=== PATIENT | male | born 1940 | race Caucasian/White ===

== ENCOUNTER 2020-03-25 12:11 | Inpatient (IN) | payer OTHER, BC ==
[2020-03-25] MEDS ORDERED: ONDANSETRON 4 MG/2 ML VIAL ONE (13:24)
[2020-03-25] MEDS ORDERED: MORPHINE 4 MG/ML SYR ONE ×2 (13:24→14:52)
[2020-03-25] MEDS ORDERED: PIPER/TAZO/NS 3.375gm 3.375 GM/100 ML BAG ONE (13:25)
[2020-03-25] MEDS ORDERED: VANCOMYCIN/NS 1 gm 1 GM/250 ML BAG IV ONE (13:30)
--- NOTE | 2020-03-25 13:35 | RAD REPORT ---
EXAM DESCRIPTION: RAD - Foot Right 3 View - 03/25/2020 1:29 pm CLINICAL HISTORY: cellulitis, eval for osteo COMPARISON: No comparisons FINDINGS: No fracture, dislocation or periosteal reaction. No acute or destructive bone process iden tifiable. Mild IP joint space narrowing seen with no spurring or erosive component. Mild to moderate for age first MTP joint degenerative change. Patient has spurring at the Achilles attachment and a ve ry minimal plantar spur. Prominent soft tissue swelling over the dorsum of the mid and distal foot. No air or foreign body see n. IMPRESSION: Prominent dorsal foot soft tissue swelling. No air or foreign body. No acute or destructive bone process.
[2020-03-25 13:52] LABS: Absolute Lymphocytes (CBC) 3.4 K/uL (0.7-4.9); Basophils % 0.7 % (0-1.3); Hematocrit 37.7 % (39.6-49.0); Lymphocytes % 19.1 % (15.3-44.8); MPV 7.2 fL (7.6-11.3); RBC Red Blood Cell Count 4.31 M/uL (4.33-5.43)
[2020-03-25 13:59] LABS: Potassium 3.3 mmol/L (3.5-5.1)
--- NOTE | 2020-03-25 14:21 | ER ---
Nurse's Notes [facility] Name: Zen Carrera Age: 79 yrs Sex: Male : 1940 Arrival Date: 03/25/2020 Time: 12:14 Bed 2 Private MD: Diagnosis: Cellulitis of right lower limb;Hyperglycemia, unspecified Presentation: 03/25 12:44 Chief complaint: Patient states: wound to right foot/ankle X 3-4 weeks, was originally iw being treated by Dr. Horvath but has not seen him since July. 12:44 Method Of Arrival: Wheelchair iw 12:48 Coronavirus screen: At this time, the client does not indicate any symptoms associated iw with coronavirus-19. Ebola Screen: Patient negative for fever greater than or equal to 101.5 degrees Fahrenheit, and additional compatible Ebola Virus Disease symptoms Patient denies exposure to infectious person. Patient denies travel to an Ebola-affected area in the 21 days before illness onset. No symptoms or risks identified at this time. 12:49 Initial Sepsis Screen: Does the patient meet any 2 criteria? HR > 90 bpm. Does the iw patient have a suspected source of infection? Yes: Skin breakdown/wound. Risk Assessment: Do you want to hurt yourself or someone else? Patient reports no desire to harm self or others. Onset of symptoms was February 27, 2020. 12:49 Acuity: NIA 2 iw Triage Assessment: 12:45 General: Appears distressed, uncomfortable, obese, Behavior is cooperative, appropriate bp for age, anxious, fussy. Pain: Complains of pain in right leg. EENT: No deficits noted. Neuro: No deficits noted. Cardiovascular: Rhythm is sinus tachycardia. Respiratory: No deficits noted. GI: No signs and/or symptoms were reported involving the gastrointestinal system. : No signs and/or symptoms were reported regarding the genitourinary system. Derm: Wound noted right leg. Musculoskeletal: No deficits noted. Historical: - Allergies: 12:53 No Known Allergies; iw - Home Meds: :53 levothyroxine 25 mcg tab 1 tab once daily [Active]; metformin 500 mg Oral tab 1 tab 2 iw times per day [Active]; tamsulosin 0.4 mg oral cp24 1 cap once daily [Active]; glipizide 10 mg Oral tab 1 tab 2 times per day [Active]; lisinopril-hydrochlorothiazide 10-12.5 mg oral tab 1 tab once daily [Active]; - PMHx: 12:53 Diabetes - NIDDM; Hypertension; iw - PSHx: 12:53 Cholecystectomy; iw - Family history:: not pertinent. - Hospitalizations: : No recent hospitalization is reported. Screenin:00 Abuse screen: Denies threats or abuse. Denies injuries from another. Nutritional bp screening: No deficits noted. Tuberculosis screening: No symptoms or risk factors identified. Fall Risk None identified. Assessment: 12:45 General: SEE TRIAGE NOTE. bp 14:20 Reassessment: Patient is alert, oriented x 3, equal unlabored respirations, skin aa5 warm/dry/pink. Right leg elevated using pillow and towels for comfort. Pt's family at bedside . 14:52 Reassessment: No changes from previously documented assessment. Patient and/or family bp updated on plan of care and expected duration. Pain level reassessed. ADMIT MD AT B/S. Vital Signs: 12:48 BP 118 / 42; Pulse 119; Resp 18 S; Temp 98.8; Pulse Ox 96% on R/A; iw 13:30 BP 109 / 94; Pulse 101; Resp 14; Pulse Ox 95% ; bp 14:30 BP 116 / 66; Pulse 89; Resp 13; Pulse Ox 98% ; bp 15:48 Temp 98.2(O); bp ED Course: 12:14 Patient arrived in ED. ag5 12:18 Hollis Null MD is Attending Physician. rn 12:49 Triage completed. iw 12:50 Luis Angel Bonilla, RN is Primary Nurse. bp 12:53 Arm band placed on. iw 13:00 Patient has correct armband on for positive identification. Bed in low position. Call bp light in reach. Side rails up X2. Adult w/ patient. 13:05 Inserted saline lock: 18 gauge in left forearm, using aseptic technique. Blood bp collected. 13:14 Radiology exam delayed due to pain meds. sg3 13:29 XRAY Foot RIGHT 3 View In Process Unspecified. EDMS 14:12 Ultrasound completed. Patient tolerated well. Notified ED Physician wiliam. sg3 14:13 Lower Extremity Artery Uni Ltd US In Process Unspecified. EDMS 14:20 Young Null MD is Hospitalizing Provider. rn 16:02 No provider procedures requiring assistance completed. Patient admitted, IV remains in aa5 place. Administered Medications: 13:10 Drug: Zosyn 3.375 grams Route: IVPB; Infused Over: 60 mins; Site: left forearm; bp 14:10 Follow up: Response: No adverse reaction; IV Status: Completed infusion aa5 13:14 Drug: morphine 3 mg Route: IVP; Site: left forearm; bp 13:27 Follow up: Response: No adverse reaction; Pain is decreased bp 13:14 Drug: Zofran (Ondansetron) 4 mg Route: IVP; Site: left forearm; bp 13:28 Follow up: Response: No adverse reaction bp 14:20 Drug: vancoMYCIN 1 grams Route: IVPB; Infused Over: 2 hrs; Site: left forearm; aa5 16:02 Follow up: IV Status: Infusion continued upon admission; Infusion continued upon aa5 admission, ZHANNA Love notiifed. 14:41 Drug: morphine 4 mg Route: IVP; Site: left forearm; bp Outcome: 14:20 Decision to Hospitalize by Provider. rn 16:01 Admitted to Med/surg accompanied by tech, family with patient, via stretcher, with aa5 chart, Report called to ZHANNA Love 16:01 Condition: stable 16:01 Discharge instructions given to patient, family, Instructed on the need for admit. 16:03 Patient left the ED. aa5 Signatures: Dispatcher [employer] EDMS Karlie Arguello RN RN Hollis Null MD MD rn Calderon, Audri, RN RN aa5 Luis Angel Bonilla RN RN bp Godinez, Sarah 3 Robert Ferreira ag5 Corrections: (The following items were deleted from the chart) 14:53 14:52 Reassessment: ADMIT MD AT B/S bp bp
--- NOTE | 2020-03-25 14:22 | EDPHYS ---
Physician Documentation [facility] Name: Zen Carrera Age: 79 yrs Sex: Male : 1940 Arrival Date: 03/25/2020 Time: 12:14 Bed 2 Private MD: ED Physician Hollis Null HPI: 03/25 13:24 This 79 yrs old Male presents to ER via Wheelchair with complaints of foot rn infection. 13:25 The patient presents with cellulitis of the right leg, the patient presents with a rn swollen area of the right foot and right leg. Onset: The symptoms/episode began/occurred at an unknown time. Possible cause(s): unknown. Modifying factors: the symptoms are alleviated by nothing, the symptoms are aggravated by touching. Severity of symptoms: At their worst the symptoms were moderate, in the emergency department the symptoms are unchanged. The patient has experienced a previous episode. Reports seen by podiatry in past, Dr. Horvath, for similar infection, got better, now reports unknown duration with right foot swelling/redness/green discoloration. No fever. Reports generalized weakness and fatigue. . Historical: - Allergies: 12:53 No Known Allergies; iw - Home Meds: 12:53 levothyroxine 25 mcg tab 1 tab once daily [Active]; metformin 500 mg Oral tab 1 tab 2 iw times per day [Active]; tamsulosin 0.4 mg oral cp24 1 cap once daily [Active]; glipizide 10 mg Oral tab 1 tab 2 times per day [Active]; lisinopril-hydrochlorothiazide 10-12.5 mg oral tab 1 tab once daily [Active]; - PMHx: 12:53 Diabetes - NIDDM; Hypertension; iw - PSHx: 12:53 Cholecystectomy; iw - Family history:: not pertinent. - Hospitalizations: : No recent hospitalization is reported. ROS: 13:25 Constitutional: Negative for fever, chills, and weight loss, Eyes: Negative for injury, rn pain, redness, and discharge, Cardiovascular: Negative for chest pain, and edema, Respiratory: Negative for shortness of breath, cough, wheezing, and pleuritic chest pain, Abdomen/GI: Negative for abdominal pain, vomiting, diarrhea, and constipation, MS/Extremity: + RLE swelling and pain Skin: + green discoloration of skin of RLE Neuro: Negative for headache, weakness, and seizure. Exam: 13:25 Constitutional: Overweight male, no acute distress. Head/Face: Normocephalic, rn atraumatic. Eyes: Periorbital areas with no swelling, redness, or edema. Cardiovascular: Tachycardic, regular Respiratory: Speaking full sentences. No increased work of breathing, no retractions or nasal flaring. Skin: Warm, moist, greenish hue overlying erythematous base of skin involving right foot and ankle/pre-tibial region. No streaking. No fluctuance. MS/ Extremity: Pulses diminished but equal bilaterally, no cyanosis. Neurovascular intact. Neuro: Awake and alert, GCS 15 Vital Signs: 12:48 BP 118 / 42; Pulse 119; Resp 18 S; Temp 98.8; Pulse Ox 96% on R/A; iw 13:30 BP 109 / 94; Pulse 101; Resp 14; Pulse Ox 95% ; bp 14:30 BP 116 / 66; Pulse 89; Resp 13; Pulse Ox 98% ; bp 15:48 Temp 98.2(O); bp MDM: 12:18 Patient medically screened. rn 14:18 Differential diagnosis: cellulitis. Data reviewed: vital signs, nurses notes, rn radiologic studies, plain films, and as a result, I will admit patient. Counseling: I had a detailed discussion with the patient and/or guardian regarding: the historical points, exam findings, and any diagnostic results supporting the discharge/admit diagnosis, radiology results, the need for further work-up and treatment in the hospital. Admission orders: after a detailed discussion of the patient's condition and case, the admit orders are written by me. ED course: Admitted to Dr. Null for cellulitis of RLE.. 03/25 12:45 Order name: CBC with Diff rn 03/25 12:45 Order name: Basic Metabolic Panel rn 03/25 12:45 Order name: Procalcitonin rn 03/25 12:45 Order name: Blood Culture Adult (2) rn 03/25 12:45 Order name: Wound Culture rn 03/25 12:45 Order name: CRP; Complete Time: 14:20 rn 03/25 12:45 Order name: Lower Extremity Artery Uni Ltd US; Complete Time: 14:50 rn 03/25 12:45 Order name: Lactate; Complete Time: 13:51 rn 03/25 12:46 Order name: CBC with Automated Diff; Complete Time: 14:20 EDMS 03/25 12:46 Order name: Basic Metabolic Panel; Complete Time: 14:50 EDMS 03/25 12:46 Order name: Procalcitonin; Complete Time: 14:20 EDMS 03/25 12:48 Order name: XRAY Foot RIGHT 3 View; Complete Time: 13:51 rn 03/25 12:45 Order name: IV Start; Complete Time: 13:15 rn 03/25 13:26 Order name: Labs - recollect needed: recollect blood please; Complete Time: 13:37 eb Administered Medications: 13:10 Drug: Zosyn 3.375 grams Route: IVPB; Infused Over: 60 mins; Site: left forearm; bp 14:10 Follow up: Response: No adverse reaction; IV Status: Completed infusion aa5 13:14 Drug: morphine 3 mg Route: IVP; Site: left forearm; bp 13:27 Follow up: Response: No adverse reaction; Pain is decreased bp 13:14 Drug: Zofran (Ondansetron) 4 mg Route: IVP; Site: left forearm; bp 13:28 Follow up: Response: No adverse reaction bp 14:20 Drug: vancoMYCIN 1 grams Route: IVPB; Infused Over: 2 hrs; Site: left forearm; aa5 16:02 Follow up: IV Status: Infusion continued upon admission; Infusion continued upon aa5 admission, ZHANNA Love. 14:41 Drug: morphine 4 mg Route: IVP; Site: left forearm; bp Disposition: 03/25/20 14:20 Hospitalization ordered by Young Null for Inpatient Admission. Preliminary diagnosis are Cellulitis of right lower limb, Hyperglycemia, unspecified. - Bed requested for Telemetry/MedSurg (Inpatient). - Status is Inpatient Admission. aa5 - Condition is Stable. - Problem is new. - Symptoms are unchanged. Signatures: Dispatcher [employer] EDMS Karlie Arguello RN RN iw Nieto, Roman, MD MD rn Calderon, Audri, RN RN aa Luis Angel Bonilla RN RN bp Botello, Elizabeth eb Corrections: (The following items were deleted from the chart) 14:21 14:20 Hospitalization Ordered by Young Null MD for Inpatient Admission. Preliminary rn diagnosis is Cellulitis of right lower limb. Bed requested for Telemetry/MedSurg (Inpatient). Status is Inpatient Admission. Condition is Stable. Problem is new. Symptoms are unchanged. rn 15:36 14:21 03/25/2020 14:20 Hospitalization Ordered by Young Null MD for Inpatient eb Admission. Preliminary diagnosis is Cellulitis of right lower limb; Hyperglycemia, unspecified. Bed requested for Telemetry/MedSurg (Inpatient). Status is Inpatient Admission. Condition is Stable. Problem is new. Symptoms are unchanged. rn 16:03 15:36 03/25/2020 14:20 Hospitalization Ordered by Young Null MD for Inpatient aa5 Admission. Preliminary diagnosis is Cellulitis of right lower limb; Hyperglycemia, unspecified. Bed requested for Telemetry/MedSurg (Inpatient). Status is Inpatient Admission. Condition is Stable. Problem is new. Symptoms are unchanged. eb
--- NOTE | 2020-03-25 14:25 | RAD REPORT ---
EXAM DESCRIPTION: US - Lower Extremity Artery Uni Ltd - 03/25/2020 2:13 pm CLINICAL HISTORY: Pain;Swelling COMPARISON: Lower Extremity Arterial Bilat dated 01/02/2019 TECHNIQUE: Doppler evaluation of the right leg arterial tree performed. Waveforms and velocity value s were obtained along with visual inspection. FINDINGS: Triphasic waveform pattern seen along the length of the lower extremity on the right. Dors dionne pedis artery imaging was not optimal. No suspicious waveform pattern or velocity value. No signi ficant atherosclerotic changes identifiable. No occlusion or focal flow restricting lesion identifiab le. IMPRESSION: Right lower extremity arterial tree study showing no significant finding.
--- NOTE | 2020-03-25 15:32 | P.HP ---
Certification for Inpatient Patient admitted to: Inpatient With expected LOS: >2 Midnights Practitioner: I am a practitioner with admitting privileges, knowledge of patient current condition, hospital course, and medical plan of care. Services: Services provided to patient in accordance with Admission requirements found in Title 42 Section 412.3 of the Code of Federal Regulations Patient History Date of Service: 03/25/20 Reason for admission: RLE cellulitis History of Present Illness: 79yo M, PMH: NIDDM, HTN, Hypothyroidism, BPH who presents to ED due to worsening RLE pain, swelling, and drainage over the past 1 month. He reports prior infections of his foot which improved with management by Dr. Horvath. This one began 1 month as a "small scratch" and worsened. He reports 10/10 pain, unable to walk due to severity of pain, unable to let it touch anything. He reports chronic/intermittent SOB that he feels may have worsened in the past few weeks. Denies chest pain, change in bowel/bladder habits, abdominal pain, vision changes, weakness/numbness. In the ED, he was noted have a leukocytosis of 17.9, HANS (creatinine: 2.55) CRP: 122, pro calcitonin: 0.9. Foot x-ray: Prominent dorsal foot soft tissue swelling. No air foreign body. No acute destructive bone process. RLE doppler: Right lower extremity arterial tree study showing no significant finding. 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 -: Skin CA removal from left eyelid -: Bilateral cataract sx -: Cholecystectomy - Family History Family History: Reviewed- Non-Contributory (Reports no family history of peripheral vascular disease) - Social History Smoking Status: Former smoker (Quit 20 years ago) Alcohol use: No Place of Residence: Home (With the eldest daughter) Review of Systems 10-point ROS is otherwise unremarkable Physical Examination - Physical Exam General: Alert, Oriented x3, Mild distress (In pain, can't get comfortable) HEENT: Sclerae nonicteric Neck: JVD not distended Respiratory: Clear to auscultation bilaterally, Diminished (At bases bilaterally ) Cardiovascular: Regular rate/rhythm, Normal S1 S2, Edema (1+ up to knees) Gastrointestinal: Soft and benign (Very mild distention), No tenderness Integumentary: Other (RLE: Significant excoriation from mid tibia down to toes, some weeping, purulent greenish markings outlined the excoriated skin) Neurological: Normal speech, Normal affect - Studies Laboratory Data (last 24 hrs) 03/25/20 13:35: Sodium 135 L, Potassium 3.3 L, BUN 54 H, Creatinine 2.55 H, G lucose 209 H 03/25/20 13:35: WBC 17.9 H, Hgb 12.8 L, Hct 37.7 L, Plt Count 503 H Assessment and Plan - Advance Directives Does patient have a Living Will: No Does patient have a Durable POA for Healthcare: No Physician Review: Patient Assessed, Agree with Above Assessment and Plan Physician Review Additional Text: RLE cellulitis -SIRS 2/4: Leukocytosis, tachycardia, afebrile, RR: 18 -h/o Pseudomonas infection, start IV Zosyn and vancomycin -podiatry -Dr Horvath consulted -pain control with [place] and her IV morphine for breakthrough DM 2 HTN Hypothyroid BPH -obtain home meds and continue Dispo: anticipate hospitalization > 2 days Time Spent Managing Pts Care (In Minutes): 55
[2020-03-25] MEDS: INSULIN -REGULAR HUMAN 50 UNIT/0.5 ML ML SQ SCH ×2 (16:30→21:02)
[2020-03-25 16:45] VITALS: BMI 34.7
[2020-03-25] MEDS ORDERED: ACETIC ACID 0.25% IRRIG IRR ONE (16:48)
--- NOTE | 2020-03-25 16:54 | P.CNS ---
Date of Consult: 03/25/20 Reason for Consult: cellulitis right lower extremity Chief Complaint: RLE cellulitis Allergies No Known Allergies Allergy (Verified 12/28/18 11:00) Home Medications: Levothyroxine [Synthroid] 125 mcg PO [id number] 03/25/20 Lisinopril/Hydrochlorothiazide [Lisinopril-Hctz 20-12.5 mg Tab] 1 each PO DAILY 03/25/20 Metformin ER [Glucophage ER] 500 mg PO BID 03/25/20 Tamsulosin [Flomax] 0.4 mg PO DAILY 03/25/20 glipiZIDE [Glipizide] 5 mg PO BID 03/25/20 - Past Medical/Surgical History Diabetic: Yes -: DM -: Hypothyroidism -: Hx skin CA -: Anemia -: HTN -: Benign prostate hypertrophy -: 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 -: Skin CA removal from left eyelid -: Bilateral cataract sx -: Cholecystectomy - Social History Alcohol use: No Place of Residence: Home (With the eldest daughter) Review of Systems 10-point ROS is otherwise unremarkable Physical Examination Temp Pulse Resp BP Pulse Ox 98.2 F 89 13 116/66 03/25/20 15:48 03/25/20 14:30 03/25/20 14:30 03/25/20 14:30 General: Alert, In no apparent distress, Oriented x3 (edema right lower extremity) Cardiovascular: Normal pulses Capillary refill: <2 Seconds Musculoskeletal: No clubbing, No swelling, No contractures, No erythema, No tenderness, No warmth Integumentary: No cyanosis, Tenderness/swelling, Erythema, Warmth, Diabetic ulcer (cellulitis right lower leg, ankle and foot with greenish drainage and maceration of skin. Wound right ankle is circumferential. ) Neurological: Sensation intact Laboratory Data (last 24 hrs) 03/25/20 13:35: Sodium 135 L, Potassium 3.3 L, BUN 54 H, Creatinine 2.55 H, Glucose 209 H 03/25/20 13:35: WBC 17.9 H, Hgb 12.8 L, Hct 37.7 L, Plt Count 503 H - Problems (1) Chronic venous hypertension w/ulcer and inflammation involv right side Current Visit: No Status: Acute (2) Diabetes Current Visit: No Status: Acute Conclusions/Impression: 1. Continue iv antibiotics 2. Bid acetic acid wet to dry dressing right lower extremity 3. Will follow Physician Review: Patient Assessed, Agree with Above Assessment and Plan
[2020-03-25] MEDS: NA CHLORIDE 0.9% 1,000 ML IV SCH (17:34)
[2020-03-25] MEDS ORDERED: CALCIUM CARBONATE CHEW 500MG TAB PO PRN (17:39)
[2020-03-25] MEDS: HYDROCODONE/APAP 7.5/325 MG TAB PO PRN (17:41)
[2020-03-25] MEDS ORDERED: VANCOMYCIN/NS 1 gm 1 GM/250 ML BAG IVPB ONE (17:45)
[2020-03-25] MEDS: PIPER/TAZO/NS 2.25gm 2.25 GM/50 ML BAG IVPB SCH (18:00)
--- NOTE | 2020-03-25 20:19 | RAD REPORT ---
EXAM DESCRIPTION: RAD - Chest Single View - 03/25/2020 7:27 pm CLINICAL HISTORY: SOB, cough COMPARISON: None TECHNIQUE: AP portable chest image was obtained 03/25/2020 7:27 pm . FINDINGS: No mass or consolidation. Minimal stranding in the lateral left base is favored to be atel ectasis. No failure or volume overload. Heart and vasculature are normal. No measurable pleural effus ion and no pneumothorax. No acute bony abnormality seen. No acute aortic findings suspected. IMPRESSION: No acute cardiopulmonary process. Minimal lateral left base stranding is believed to be atelectasis.
[2020-03-25] MEDS ORDERED: VANCOMYCIN 1.5 GM in NA CHLORIDE 0.9% 500 ML IVPB SCH (21:00)
[2020-03-26] MEDS: NA CHLORIDE 0.9% 1,000 ML IV SCH ×2 (00:25→12:13)
[2020-03-26] MEDS: PIPER/TAZO/NS 2.25gm 2.25 GM/50 ML BAG IVPB SCH ×5 (00:25→23:11)
[2020-03-26] MEDS: HYDROCODONE/APAP 7.5/325 MG TAB PO PRN ×3 (04:23→21:34)
[2020-03-26 05:48] LABS: Absolute Lymphocytes (CBC) 1.7 K/uL (0.7-4.9); Basophils % 0.3 % (0-1.3); Hematocrit 32.9 % (39.6-49.0); Lymphocytes % 11.7 % (15.3-44.8); MPV 6.9 fL (7.6-11.3); Protime INR 1.16; RBC Red Blood Cell Count 3.75 M/uL (4.33-5.43)
[2020-03-26 06:18] LABS: Albumin 2.3 g/dL (3.4-5.0); Bilirubin Total 0.5 mg/dL (0.2-1.0); Magnesium 2.1 mg/dL (1.8-2.4); Potassium 3.1 mmol/L (3.5-5.1); Protein, Total 5.7 g/dL (6.4-8.2)
[2020-03-26] MEDS ORDERED: POTASSIUM 25 MEQ EFFERV TAB PO ONE ×2 (06:52→15:59)
[2020-03-26] MEDS: INSULIN -REGULAR HUMAN 50 UNIT/0.5 ML ML SQ SCH ×4 (07:30→20:41)
[2020-03-26] MEDS: ENOXAPARIN 30 MG/0.3 ML SQ SCH (09:19)
[2020-03-26] MEDS: ACETIC ACID 0.25% IRRIG IRR SCH ×2 (09:20→23:30)
[2020-03-26] MEDS: MORPHINE 2 MG/ML SYR IV PRN ×2 (09:21→23:23)
--- NOTE | 2020-03-26 09:37 | P.PN ---
Subjective Date of Service: 03/26/20 Chief Complaint: RLE cellulitis Subjective: Improving (Reports pain is better controlled, feels he is breathing better) Physical Examination - Vital Signs Temperature: 97.9 F Blood Pressure: 123/60 Pulse: 77 Respirations: 18 Pulse Ox (%): 98 - Physical Exam General: Alert, In no apparent distress HEENT: Mucous membr. moist/pink Neck: No LAD Respiratory: Clear to auscultation bilaterally, Diminished (Slightly at bases) Cardiovascular: Regular rate/rhythm, Normal S1 S2 Gastrointestinal: Soft and benign, Non-distended, No tenderness Integumentary: Other (RLE with dressing intact) Neurological: Normal speech, Normal affect - Studies Laboratory Data (last 24 hrs) 03/25/20 13:35: Sodium 135 L, Potassium 3.3 L, BUN 54 H, Creatinine 2.55 H, Glucose 209 H 03/25/20 13:35: WBC 17.9 H, Hgb 12.8 L, Hct 37.7 L, Plt Count 503 H Assessment & Plan Physician Review: Patient Assessed, Agree with Above Assessment and Plan Physician Review Additional Text: RLE cellulitis -SIRS 2/4: Leukocytosis, tachycardia, afebrile, RR: 18 on admission -h/o Pseudomonas infection, start IV Zosyn and vancomycin -podiatry -Dr Horvath consulted - continue wound care -pain control with [place] and IV morphine for breakthrough -leukocytosis improving HANS on CKD -likely prerenal component - patient has not been eating/drinking well and acutely infected -improved overnight with IVF hydration -appears to be at baseline, will decrease IVF from 100 -> 50ml/hr for now; 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
[2020-03-27] MEDS: VANCOMYCIN 2 GM in NA CHLORIDE 0.9% 500 ML IVPB SCH (01:02)
[2020-03-27] MEDS: HYDROCODONE/APAP 7.5/325 MG TAB PO PRN (04:19)
[2020-03-27 04:24] LABS: Absolute Lymphocytes (CBC) 1.7 K/uL (0.7-4.9); Basophils % 0.5 % (0-1.3); Hematocrit 33.4 % (39.6-49.0); Lymphocytes % 18.8 % (15.3-44.8); MPV 6.7 fL (7.6-11.3); RBC Red Blood Cell Count 3.84 M/uL (4.33-5.43)
[2020-03-27 04:35] LABS: Magnesium 1.9 mg/dL (1.8-2.4); Potassium 3.6 mmol/L (3.5-5.1)
[2020-03-27 04:52] LABS: Urine Appearance CLEAR; Urine Bilirubin NEGATIVE (NEG); Urine Blood 2+ (NEG); Urine Color YELLOW; Urine Glucose 3+ (NEG); Urine Protein 1+ (NEG); Urine Urobilinogen 0.2 mg/dL (0.2-1.0)
[2020-03-27] MEDS: PIPER/TAZO/NS 2.25gm 2.25 GM/50 ML BAG IVPB SCH ×3 (04:53→17:13)
[2020-03-27 05:11] LABS: UR PROTEIN 57 mg/dL (<11.9); UR SODIUM 64 mmol/L (27-287)
[2020-03-27] MEDS: NA CHLORIDE 0.9% 1,000 ML IV SCH ×2 (05:13→12:02)
[2020-03-27 05:29] LABS: Urine Bacteria <20 /HPF (NONE SEEN); Urine Culture Reflex Order NOT NEEDED; Urine RBC <5 /HPF (NONE SEEN)
[2020-03-27] MEDS: INSULIN -REGULAR HUMAN 50 UNIT/0.5 ML ML SQ SCH ×4 (08:08→21:35)
[2020-03-27] MEDS: ENOXAPARIN 30 MG/0.3 ML SQ SCH (08:08)
[2020-03-27] MEDS: ACETIC ACID 0.25% IRRIG IRR SCH ×2 (08:09→21:36)
[2020-03-27] MEDS ORDERED: POTASSIUM 25 MEQ EFFERV TAB PO ONE (09:00)
[2020-03-27] MEDS ORDERED: D50W 25 GM/50 ML SYRINGE/VIAL IV PRN (09:10)
[2020-03-27] MEDS ORDERED: GLUCAGON 1 MG/VIAL IM PRN (09:10)
--- NOTE | 2020-03-27 09:11 | P.PN ---
Subjective Date of Service: 03/27/20 Chief Complaint: RLE cellulitis Subjective: Improving (Reports pain has slightly improved, managed with [place]. Dressings changes are very painful Feels he is breathing better, urinating/passing gas without issue) Review of Systems 10-point ROS is otherwise unremarkable Physical Examination - Vital Signs Temperature: 97.1 F Blood Pressure: 119/59 Pulse: 86 Respirations: 16 Pulse Ox (%): 94 - Physical Exam General: Alert, Oriented x3, Mild distress (Slightly uncomfortable/restless) HEENT: Sclerae nonicteric Neck: Supple Respiratory: Clear to auscultation bilaterally, Normal air movement Cardiovascular: Regular rate/rhythm, Edema (Trace bilaterally) Gastrointestinal: Soft and benign, Non-distended, No tenderness Integumentary: Other (RLE wrapped in kerlix, dressing c/d/i) Neurological: Normal speech, Normal affect - Studies Microbiology Data (last 24 hrs): 03/25/20 13:05 Wound - Right Foot Gram Stain - Final Assessment & Plan Physician Review Additional Text: RLE cellulitis -SIRS 2/4: Leukocytosis, tachycardia, afebrile, RR: 18 on admission -h/o Pseudomonas infection, start IV Zosyn and vancomycin, pending cultures - preliminary growing Pseudomonas -podiatry -Dr Horvath consulted - continue wound care -pain control with [place] and IV morphine for breakthrough -leukocytosis resolved HANS on CKD -likely prerenal component - patient has not been eating/drinking well and acutely infected -significantly improved with IV hydration, eating/drinking better, will discontinue IV fluids -if worsens, consider nephrology consult DM 2 -holding the home oral medications -SSI, increased to medium dose SSI for better control -will add lantus 5u this evening for better control HTN -hypotensive, hold home lisnopril/HCTZ Hypothyroid BPH -stable, continue home meds VTE: lovenox Dispo: anticipate hospitalization > 2 days pending cultures and wound improvement, likely dc home Time Spent Managing Pts Care (In Minutes): 35
--- NOTE | 2020-03-27 09:40 | P.PN ---
Subjective Date of Service: 03/27/20 Chief Complaint: RLE cellulitis Subjective: Improving Review of Systems 10-point ROS is otherwise unremarkable Physical Examination - Vital Signs Temperature: 97.1 F Blood Pressure: 119/59 Pulse: 86 Respirations: 16 Pulse Ox (%): 94 - Physical Exam General: Alert, In no apparent distress, Oriented x3 Cardiovascular: Normal pulses, Edema Capillary refill: <2 Seconds Musculoskeletal: No clubbing, No swelling, No contractures, No erythema, No tenderness, No warmth Integumentary: Venous stasis ulcer (erythema and edema to right lower extremity is improved. Reduced green drainage) Neurological: Sensation intact - Studies Microbiology Data (last 24 hrs): 03/25/20 13:05 Wound - Right Foot Gram Stain - Final Assessment And Plan - Current Problems (Diagnosis) (1) Chronic venous hypertension w/ulcer and inflammation involv right side Current Visit: No Status: Acute (2) Diabetes Current Visit: No Status: Acute - Plan Continue bid acetic acid wet to dry dressings right lower extremity. Patient can be d/c to home on oral antibiotics and follow up in one week in wound care Discharge Plan: Home Physician Review: Patient Assessed, Agree with Above Assessment and Plan Physician Review Additional Text: RLE cellulitis -SIRS 2/4: Leukocytosis, tachycardia, afebrile, RR: 18 on admission -h/o Pseudomonas infection, start IV Zosyn and vancomycin, pending cultures - preliminary growing Pseudomonas -podiatry -Dr Horvath consulted - continue wound care -pain control with [place] and IV morphine for breakthrough -leukocytosis resolved HANS on CKD -likely prerenal component - patient has not been eating/drinking well and acutely infected -significantly improved with IV hydration, eating/drinking better, will discontinue IV fluids -if worsens, consider nephrology consult DM 2 -holding the home oral medications -SSI, increased to medium dose SSI for better control -will add lantus 5u this evening for better control HTN -hypotensive, hold home lisnopril/HCTZ Hypothyroid BPH -stable, continue home meds VTE: lovenox Dispo: anticipate hospitalization > 2 days pending cultures and wound improvement, likely dc home
[2020-03-27] MEDS: TAMSULOSIN 0.4 MG SR CAP PO SCH (09:50)
--- NOTE | 2020-03-27 11:02 | RAD REPORT ---
EXAM DESCRIPTION: US - Renal Ultrasound-Complete - 03/27/2020 10:28 am CLINICAL HISTORY: . Acute renal insufficiency COMPARISON: None. FINDINGS: The right kidney measures 11 cm with a normal echotexture. 1.7 centimeter renal cysts all The left kidney measures 11 all cm with a normal echotexture. Two renal cysts. The largest measures 2 .4 centimeters Hydronephrosis is not seen. No gross abnormality of bladder IMPRESSION: Renal cysts
[2020-03-27] MEDS: MORPHINE 2 MG/ML SYR IV PRN ×2 (15:29→22:36)
[2020-03-27] MEDS ORDERED: INSULIN GLARGINE 100 UNITS/ML SQ SCH (17:00)
[2020-03-28] MEDS: PIPER/TAZO/NS 2.25gm 2.25 GM/50 ML BAG IVPB SCH ×3 (00:02→12:02)
[2020-03-28 04:35] LABS: Potassium 3.4 mmol/L (3.5-5.1)
[2020-03-28] MEDS: MORPHINE 2 MG/ML SYR IV PRN ×2 (05:13→10:32)
[2020-03-28] MEDS ORDERED: LEVOTHYROXINE SOD 0.125 MG TAB PO SCH (06:00)
[2020-03-28] MEDS: NA CHLORIDE 0.9% 1,000 ML IV SCH (06:10)
[2020-03-28] MEDS: ENOXAPARIN 30 MG/0.3 ML SQ SCH (07:56)
[2020-03-28] MEDS: HYDROCODONE/APAP 7.5/325 MG TAB PO PRN (07:56)
[2020-03-28] MEDS: TAMSULOSIN 0.4 MG SR CAP PO SCH (07:56)
[2020-03-28] MEDS: INSULIN -REGULAR HUMAN 50 UNIT/0.5 ML ML SQ SCH ×2 (08:23→12:15)
[2020-03-28] MEDS: ACETIC ACID 0.25% IRRIG IRR SCH (08:24)
[2020-03-28 08:55] VITALS: O2SAT 96
[2020-03-28] MEDS ORDERED: POTASSIUM 25 MEQ EFFERV TAB PO ONE (09:00)
--- NOTE | 2020-03-28 10:09 | P.PN ---
Subjective Date of Service: 03/28/20 Chief Complaint: RLE cellulitis Subjective Pt with Hx of DM, venous stasis, HTN on lisinopril/HCTZ , admitted ro worsening Rt leg wound Cr 2.5 on admission, improved to 1.0 on IVF today no new complaints Cr downt o 1.0 , will hold on IVF can be discharged from nephrology point of view Physical exam general: AAOX3,NAD Neck; Supple, No elevated JVD hear: RRR, normal S1,2 no murmur or rub Chest: CTAB, no rlaes or wheezes Abdomen: Soft , Nt Extremities Rt ;leg swelling, dressed , lt leg trace edema A/P HANS due to dehydration resolved US : no hydro hold home lisnopril/HCTZ will dc iVF HTN BP controlled hold home lisnopril/HCTZ DM as per primary team Rt leg celluilituis Cont ABx and wound care follow with Dr Horvath Chronic venous stasis Cont pressure socks Hypocalcemia cont calcium carbonate Physical Examination - Vital Signs Temperature: 97.6 F Blood Pressure: 164/79 Pulse: 88 Respirations: 18 Pulse Ox (%): 96 - Studies Microbiology Data (last 24 hrs): 03/25/20 13:05 Wound - Right Foot Gram Stain - Final Assessment And Plan Physician Review: Patient Assessed, Agree with Above Assessment and Plan
--- NOTE | 2020-03-28 11:00 | P.DS ---
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 X-ray of the foot demonstrated significant soft tissue swelling. Patient had leukocytosis. He has a prior history of Pseudomonas infection of the foot. His creatinine was also elevated above baseline. Patient was admitted for further management of infected foot wound and acute renal failure. Hospital Course: Patient admitted to the medical floor and treated with IV Zosyn and IV vancomycin. He was also hydrated with IV normal saline. Acute renal failure resolved with hydration. Patient was seen in consultation with Nephrology who assisted with management. He was also evaluated by precision lens generator Dr. Horvath will also recommended at least 48 hrs of IV antibiotic therapy. Wound culture grew Pseudomonas, staph and strep. Pseudomonas and strep sensitive to Levaquin. Patient is debilitated. He underwent physical therapy. Patient will benefit from further skilled rehab. He will be disposition to rehab with at least 10 days of antibiotic therapy for infected wound. Vital Signs/Physical Exam: Temp Pulse Resp BP Pulse Ox 97.6 F 88 18 164/79 H 96 03/28/20 10:10 03/28/20 10:10 03/28/20 10:32 03/28/20 10:10 03/28/20 10:32 General: Alert, In no apparent distress, Oriented x3 HEENT: Mucous membr. moist/pink Neck: Supple Respiratory: Clear to auscultation bilaterally, Normal air movement Cardiovascular: Regular rate/rhythm, Normal S1 S2, Edema (Bilateral lower extremities, worse on the right) Gastrointestinal: Normal bowel sounds, Soft and benign Integumentary: Other (Lower extremity venostasis dermatitis.) Neurological: Normal speech, Normal strength at 5/5 x4 extr Laboratory Data at Discharge: WBC 9.2 K/uL (4.3-10.9) D 03/27/20 03:48 Hgb 11.4 g/dL (13.6-17.9) L 03/27/20 03:48 Hct 33.4 % (39.6-49.0) L 03/27/20 03:48 Plt Count 381 K/uL (152-406) 03/27/20 03:48 PT 13.6 SECONDS (9.5-12.5) H 03/26/20 05:24 INR 1.16 03/26/20 05:24 Sodium 141 mmol/L (136-145) 03/28/20 04:06 Potassium 3.4 mmol/L (3.5-5.1) L 03/28/20 04:06 BUN 13 mg/dL (7-18) 03/28/20 04:06 Creatinine 1.03 mg/dL (0.55-1.3) 03/28/20 04:06 Glucose 208 mg/dL (74-106) H 03/28/20 04:06 Uric Acid 5.1 mg/dL (3.5-7.2) 03/27/20 03:48 Magnesium 1.9 mg/dL (1.8-2.4) 03/27/20 03:48 Total Bilirubin 0.5 mg/dL (0.2-1.0) 03/26/20 05:24 AST 21 U/L (15-37) 03/26/20 05:24 ALT 29 U/L (12-78) 03/26/20 05:24 Alkaline Phosphatase 99 U/L (45-117) 03/26/20 05:24 Home Medications: Levothyroxine [Synthroid*] 125 mcg PO [id number] 03/25/20 Lisinopril/Hydrochlorothiazide [Lisinopril-Hctz 20-12.5 mg Tab] 1 each PO DAILY 03/25/20 Metformin ER [Glucophage ER*] 500 mg PO BID 03/25/20 Tamsulosin [Flomax*] 0.4 mg PO DAILY 03/25/20 glipiZIDE [Glipizide] 5 mg PO BID 03/25/20 Acetic Acid 0.25% [Acetic Acid 0.25%*] 1,000 ml IRR BID btl 03/28/20 Calcium Carbonate [Tums Regular*] 500 mg PO QIDP PRN tab 03/28/20 Insulin -Regular Human [Novolin -R*] See Protocol SQ ACHS ml 03/28/20 levoFLOXacin [Levaquin] 750 mg PO DAILY #10 tab 03/28/20 New Medications: levoFLOXacin [Levaquin] 750 mg PO DAILY #10 tab Diet: ADA Activity: Fall precautions Followup: Unknown,U [Primary Care Provider] - Time spent managing pt's care (in minutes): 45
--- NOTE | 2020-03-28 11:14 | CON ---
Date of Consultation: 03/27/2020 Chief Complaint: Diabetes mellitus with diabetic kidney disease, acute on chronic kidney injury. History Of Present Illness: The patient was found to have severe leukocytosis. White count was 17.9, acute kidney injury. On admission to the hospital, creatinine was 2.55. The patient came to the hospital because of progressively worse right lower extremity pain, swelling and drainage. The patient has nonhealing lower extremity wound and prior infection to his foot, which primarily improved with wound care. He was seen by mechanical facilities technician. This began 1 month ago with small scratch and subsequently has worsened to the open wound with drainage. The patient was complaining of some shortness of breath. He denies chest pain, fever, or chills. Denies melena, hematemesis. Denies hematuria, dysuria. The patient has history of kidney stones on 2 occasions at least several years ago and did not require intervention. Urine was significant for uric acid crystals in 24 hours urine collection. Uric acid was requested as well as uric acid level will be evaluated. The patient denies history of gout. The patient has history of chronic kidney disease, hypertensive kidney disease. Review of Systems: The patient is lethargic, cannot provide review of systems. I discussed his history with his daughters at the bedside. Past Medical History: Diabetes mellitus, hypothyroidism, history of skin cancer, anemia, hypertension, BPH, diabetic foot infection, skin cancer removal from the ear, skin cancer removal from the left eye, bilateral cataract surgery, and cholecystectomy. Family History: Denies history of kidney stone in the family. No kidney disease in the family. Social History: Former smoker, quit tobacco 20 years ago. Denies alcohol or IV drugs. Physical Examination: General: The patient follows commands. Eyes: Anicteric sclerae. EOMI. Ears, Nose, Mouth, and Throat: Oral mucosa moist. No pallor. Neck: Supple. No bruits. Lungs: Diminished breath sounds at the bases. No wheezing. No rhonchi. Heart: S1, S2. No pericardial friction rub. Abdomen: Obese, nontender. No rebound. No guarding. Extremities: Edema in the right lower extremity, dressing in place. Neurologic: Speech normal. No tremor. Cranial nerves intact. Laboratory Data: Sodium 135, potassium 3.3, BUN 54, creatinine 2.55, glucose 209. WBC 17.9, hemoglobin 12.8, hematocrit 37.7, platelet count is 503,000. Impression And Plan: 1. Acute on chronic kidney injury. The patient has underlying chronic kidney disease secondary to diabetes mellitus and hypertension. The patient is started on Zosyn and vancomycin for nonhealing lower extremity wounds. The patient has severe leukocytosis. The patient has wound care. He has history of Pseudomonas infection and Zosyn will be used to cover for Pseudomonas infection. The patient will require methicillin-resistant Staphylococcus aureus coverage with vancomycin. Continue to evaluate vancomycin level and adjust treatment according to vancomycin test results. The patient will require pain meds for pain control. Recommend to avoid nonsteroidal anti-inflammatory medication. 2. Diabetes mellitus. Evaluate kidney function daily. Continue to use diuretics sparingly. The patient had lymphedema due to cellulitis and possible osteomyelitis. Will be treated with antibiotics. Monitor vancomycin toxicity panel. 3. The patient has history of kidney stones and there is possible hyperuricemia, which will be evaluated and the patient will need to start low purine diet accordingly, and the patient may need to be started on allopurinol. Further recommendation will be provided upon results from 24 hours urine collection. 4. Benign prostatic hypertrophy. Continue Flomax and monitor for any evidence of bladder outlet obstruction. 5. Renal ultrasound is ordered to assess kidney size and echotexture. 6. Monitor proteinuria, check active urinary sediment and screen for vasculitis accordingly. JERRY/EMILY Voice ID: [id number] Report ID: [id number] LAURA
[2020-03-28 11:50] VITALS: BP 145/62; TEMP 97.2
[2020-03-28] MEDS: VANCOMYCIN 2 GM in NA CHLORIDE 0.9% 500 ML IVPB SCH (14:00)
== END 2020-03-28 15:41 | DRG 300 ==
LOC: ER 12:11 → ERHOLD 15:13 → 2ND 16:02
PROVIDERS: ADMIT Hospitalist; ATTEND Internal Medicine
DX: I87.331 Chronic venous hypertension (idiopathic) with ulcer and inflammation of right lower extremity (principal); N17.9 Acute kidney failure, unspecified; L03.115 Cellulitis of right lower limb; E03.9 Hypothyroidism, unspecified; N40.0 Benign prostatic hyperplasia without lower urinary tract symptoms; I12.9 Hypertensive chronic kidney disease with stage 1 through stage 4 chronic kidney disease, or unspecified chronic kidney disease; N18.9 Chronic kidney disease, unspecified; E11.22 Type 2 diabetes mellitus with diabetic chronic kidney disease; D72.829 Elevated white blood cell count, unspecified; R00.0 Tachycardia, unspecified; E86.0 Dehydration; E83.51 Hypocalcemia; I89.0 Lymphedema, not elsewhere classified; B96.5 Pseudomonas (aeruginosa) (mallei) (pseudomallei) as the cause of diseases classified elsewhere; B95.8 Unspecified staphylococcus as the cause of diseases classified elsewhere; B95.5 Unspecified streptococcus as the cause of diseases classified elsewhere; R53.81 Other malaise; E66.9 Obesity, unspecified; Z68.30 Body mass index [BMI] 30.0-30.9, adult; Z85.828 Personal history of other malignant neoplasm of skin; Z79.84 Long term (current) use of oral hypoglycemic drugs; Z79.890 Hormone replacement therapy; Z79.899 Other long term (current) drug therapy; Z87.891 Personal history of nicotine dependence; Z90.49 Acquired absence of other specified parts of digestive tract; Z20.828 Contact with and (suspected) exposure to other viral communicable diseases
CPT/HCPCS: 36415; 71045; 76770; 80048; 80053; 80202; 81001; 82570; 82947; 83605; 83735; 84132; 84145; 84156; 84300; 84550; 85025; 85610; 86140; 87040; 87070; 87077; 87186; 87205; 93926; 94760; 96365; 96366; 96367; 96375; 97116; 97161; 97530; 99285; J1650; J1815; J2270; J2405; J2543; J3370; J7030; J7040; U0003